=== PATIENT | female | born 1990 | race Caucasian/White ===

== ENCOUNTER 2016-12-02 22:33 | Emergency (ER) | payer OTHER ==
[2016-12-02 23:57] LABS: BASOPHIL % 0.6 % (0-2); PLATELET COUNT 166 x10^3mcL (130-400); RED CELL DISTRIBUTION WIDTH 13.4 % (11.5-14.5)
[2016-12-03 00:07] LABS: CALCIUM 8.8 mg/dL (8.5-10.1); CHLORIDE SERUM 104 mmol/L (98-107); CREATININE SERUM 0.9 mg/dL (0.6-1.0); GFR1 > 60 mL/min; GLUCOSE SERUM 90 mg/dL (74-106); SODIUM SERUM 140 mmol/L (136-145)
[2016-12-03 00:19] LABS: ALBUMIN 3.6 g/dL (3.4-5.0); ALKALINE PHOSPHATASE 87 U/L (46-116); ALT/SGPT 19 U/L (14-59); AST/SGOT 12 U/L (15-37); BILIRUBIN TOTAL 0.3 mg/dL (0.20-1.00); TOTAL PROTEIN, SERUM 7.2 g/dL (6.4-8.2)
[2016-12-03 00:53] VITALS: BP 122/68
== END 2016-12-03 00:54 | disposition home or self-care (01) ==
LOC: ED 22:33
PROVIDERS: Emergency Medicine
DX: G44.209 Tension-type headache, unspecified, not intractable (principal)
CPT/HCPCS: 36415

== ENCOUNTER 2017-02-16 20:51 | Emergency (ER) | payer OTHER ==
[~2017-02-16] VITALS: Ht 157.5 cm; Wt 55.3 kg
[2017-02-16 21:01] VITALS: Ht 157.5 cm; Wt 55.3 kg
[2017-02-16 22:20] VITALS: BP 105/67
== END 2017-02-16 22:20 | disposition home or self-care (01) ==
LOC: ED 20:51
DX: J40 Bronchitis, not specified as acute or chronic (principal); J06.9 Acute upper respiratory infection, unspecified

== ENCOUNTER 2018-10-03 07:37 | Emergency (ER) | payer MEDICAID ==
[~2018-10-03] VITALS: Ht 157.5 cm; Wt 55.8 kg
[2018-10-03 07:44] VITALS: Ht 157.5 cm; Wt 55.8 kg
[2018-10-03 09:54] VITALS: BP 121/83
== END 2018-10-03 09:58 | disposition home or self-care (01) ==
LOC: ED 07:37
DX: F41.1 Generalized anxiety disorder (principal); R20.0 Anesthesia of skin; R53.1 Weakness; R42 Dizziness and giddiness; Z98.51 Tubal ligation status; Z90.49 Acquired absence of other specified parts of digestive tract; Z98.890 Other specified postprocedural states

== ENCOUNTER 2019-06-14 08:49 | Inpatient (IN) | payer OTHER ==
[~2019-06-14] VITALS: Ht 157.5 cm; Wt 56.7 kg
[2019-06-14 08:51] VITALS: Ht 157.5 cm; Wt 56.7 kg
[2019-06-14 09:42] LABS: BASOPHIL % 0.2 % (0-2); PLATELET COUNT 136 x10^3mcL (130-400); RED CELL DISTRIBUTION WIDTH 12.5 % (11.5-14.5)
[2019-06-14 09:54] LABS: ALBUMIN 3.8 g/dL (3.4-5.0); ALKALINE PHOSPHATASE 84 U/L (46-116); ALT/SGPT 66 U/L (14-59); AMYLASE 25 U/L (25-115); AST/SGOT 94 U/L (15-37); BILIRUBIN TOTAL 0.4 mg/dL (0.20-1.00); CARBON DIOXIDE 27.5 mmol/L (21-32); CHLORIDE SERUM 104 mmol/L (98-107); CREATININE SERUM 0.6 mg/dL (0.6-1.0); GFR1 > 60 mL/min; GLUCOSE SERUM 100 mg/dL (74-106); LIPASE 117 IU/L (73-393); SODIUM SERUM 141 mmol/L (136-145); TOTAL PROTEIN, SERUM 7.2 g/dL (6.4-8.2)
[2019-06-14 10:06] LABS: CALCIUM 9.2 mg/dL (8.5-10.1)
[2019-06-14 12:36] VITALS: BP 106/69
[2019-06-14 17:05] VITALS: BP 94/50
[2019-06-14 20:21] VITALS: BP 100/67
[2019-06-15 05:28] VITALS: BP 94/54
[2019-06-15 06:27] LABS: BASOPHIL % 0.4 % (0-2); RED CELL DISTRIBUTION WIDTH 12.9 % (11.5-14.5)
[2019-06-15 06:45] LABS: PLATELET COUNT 122 x10^3mcL (130-400)
[2019-06-15 07:06] LABS: ALKALINE PHOSPHATASE 91 U/L (46-116); ALT/SGPT 438 U/L (14-59); AST/SGOT 275 U/L (15-37); BILIRUBIN DIRECT 0.14 mg/dL (0.0-0.2); CALCIUM 8.3 mg/dL (8.5-10.1); CARBON DIOXIDE 26.6 mmol/L (21-32); CHLORIDE SERUM 108 mmol/L (98-107); CREATININE SERUM 0.5 mg/dL (0.6-1.0); GFR1 > 60 mL/min; GLUCOSE SERUM 91 mg/dL (74-106); POTASSIUM SERUM 3.7 mmol/L (3.5-5.1); SODIUM SERUM 143 mmol/L (136-145); TOTAL PROTEIN, SERUM 5.8 g/dL (6.4-8.2)
[2019-06-15 08:03] VITALS: BP 95/67
[2019-06-15 11:40] VITALS: BP 100/56
[2019-06-15 15:18] VITALS: BP 101/58
[2019-06-15 20:24] VITALS: BP 102/63
[2019-06-16 06:40] LABS: BASOPHIL % 0.4 % (0-2); RED CELL DISTRIBUTION WIDTH 12.5 % (11.5-14.5)
[2019-06-16 07:11] LABS: ALKALINE PHOSPHATASE 78 U/L (46-116); ALT/SGPT 295 U/L (14-59); AST/SGOT 96 U/L (15-37); BILIRUBIN DIRECT 0.09 mg/dL (0.0-0.2); BILIRUBIN TOTAL 0.3 mg/dL (0.20-1.00); CALCIUM 8.6 mg/dL (8.5-10.1); CARBON DIOXIDE 26.4 mmol/L (21-32); CHLORIDE SERUM 107 mmol/L (98-107); CREATININE SERUM 0.6 mg/dL (0.6-1.0); GFR1 > 60 mL/min; GLUCOSE SERUM 92 mg/dL (74-106); POTASSIUM SERUM 3.8 mmol/L (3.5-5.1); SODIUM SERUM 144 mmol/L (136-145)
[2019-06-16 07:14] LABS: ALBUMIN 3.2 g/dL (3.4-5.0); TOTAL PROTEIN, SERUM 6.1 g/dL (6.4-8.2)
[2019-06-16 07:15] LABS: PLATELET COUNT 127 x10^3mcL (130-400)
[2019-06-16 08:25] VITALS: BP 98/59
[2019-06-16 12:04] LABS: microscopic required? NO
[2019-06-16 12:13] VITALS: BP 101/62
[2019-06-16 12:20] LABS: urine erythrocyte NEGATIVE (NEGATIVE)
[2019-06-16 21:03] VITALS: BP 103/55
[2019-06-17 05:12] VITALS: BP 106/66
[2019-06-17 06:22] LABS: BASOPHIL % 0.3 % (0-2); PLATELET COUNT 137 x10^3mcL (130-400); RED CELL DISTRIBUTION WIDTH 12.7 % (11.5-14.5)
[2019-06-17 06:25] LABS: CALCIUM 8.6 mg/dL (8.5-10.1); CHLORIDE SERUM 107 mmol/L (98-107); CREATININE SERUM 0.5 mg/dL (0.6-1.0); GFR1 > 60 mL/min; GLUCOSE SERUM 90 mg/dL (74-106); POTASSIUM SERUM 3.7 mmol/L (3.5-5.1); SODIUM SERUM 143 mmol/L (136-145)
[2019-06-17 08:35] VITALS: BP 96/55
[2019-06-17] MEDS ORDERED: CIPRO500 MG PO (10:51)
[2019-06-17] MEDS ORDERED: FLA500 PO (10:52)
[2019-06-17 11:10] VITALS: BP 96/55
== END 2019-06-17 11:49 | disposition home or self-care (01) ==
LOC: ED 08:49 → MU 11:16
PROVIDERS: Emergency Medicine; Internal Medicine; Student in an Organized Health Care Education/Training Program; ADMIT Family Medicine
PROC: 0F798ZZ Dilation of Common Bile Duct, Via Natural or Artificial Opening Endoscopic (ICD-10-PCS; principal; 2019-06-16 12:45)
PROC: BF101ZZ Fluoroscopy of Bile Ducts using Low Osmolar Contrast (ICD-10-PCS; 2019-06-16 12:45)
DX: K83.8 Other specified diseases of biliary tract (principal); C53.9 Malignant neoplasm of cervix uteri, unspecified; G43.909 Migraine, unspecified, not intractable, without status migrainosus; K83.1 Obstruction of bile duct; Z90.89 Acquired absence of other organs; Z98.51 Tubal ligation status
CPT/HCPCS: 43262; C1769; C9113; G0378; J1170; J1610; J1885; J2270; J7042; Q0092; Q0162; Q9967